=== PATIENT | female | born 1950 | race African-American/Black ===

== ENCOUNTER 2017-02-28 11:07 | Outpatient (CLI) | payer OTHER | END 2017-02-28 13:59 | disposition home or self-care (01) | LOC: BICRAD 11:07 | PROVIDERS: ATTEND Family Medicine | DX: M25.572 Pain in left ankle and joints of left foot (principal); M79.672 Pain in left foot; M79.89 Other specified soft tissue disorders ==

== ENCOUNTER 2017-10-30 10:21 | Outpatient (CLI) | payer MEDICARE, OTHER | END 2017-10-30 10:22 | disposition home or self-care (01) | LOC: BICMAMMO 10:21 | PROVIDERS: ATTEND Family Medicine | DX: Z12.31 Encounter for screening mammogram for malignant neoplasm of breast (principal) | CPT/HCPCS: 77063; 77067 ==

== ENCOUNTER 2020-06-11 16:49 | Observation (INO) | payer MEDICARE, MEDICAID ==
[2020-06-11] MEDS ORDERED: Lorazepam 2 MG/ML VIAL ONE (17:20)
[2020-06-11 18:57] LABS: ALT (SGPT) 34 U/L (8-55); AST (SGOT) 69 U/L (5-34); Albumin 3.9 g/dL (3.4-4.8); Alkaline Phosphatase 86 U/L (40-110); Anion Gap 15 mmol/L (10-20); BUN (Urea Nitrogen) 14 mg/dL (9.8-20.1); Bilirubin, Total 0.3 mg/dL (0.2-1.2); Calc. Creatinine Clearance 0 mL/min (70-130); Calcium 8.5 mg/dL (7.8-10.44); Carbon Dioxide 22 mmol/L (23-31); Chloride 105 mmol/L (98-107); Globulin 4.2 g/dL (2.4-3.5); Glucose 154 mg/dL (83-110); Protein, Total 8.1 g/dL (5.8-8.1); Sodium 138 mmol/L (136-145)
[2020-06-11 20:36] LABS: #Eosinphils 0.1 thou/uL (0.0-0.7); #Lymphocytes 1.8 thou/uL (1.20-3.40); #Monocytes 0.5 thou/uL (0.11-0.59); #Neutrophils 2.8 thou/uL (1.40-6.50); %Basophils 0.4 % (0.0-1.0); %Eosinophils 1.6 % (0.0-10.0); %Lymphocytes 33.6 % (21.0-51.0); %Monocytes 10.1 % (0.0-10.0); %Neutrophils 54.3 % (42.0-75.0); Hemoglobin 12.9 g/dL (12.0-16.0); Mean Corpuscular HGB CONC 32.5 g/dL (32.0-36.0); Mean Corpuscular Hemoglobin 30.1 pg (27.0-31.0); Mean Corpuscular Volume 92.8 fL (78.0-98.0); Mean Platelet Volume 8.6 fL (7.4-10.4); Platelet Count 137 thou/uL (130-400); RBC Distribution Width 12.5 % (11.5-14.5); Red Blood Cell (RBC) Count 4.29 mill/uL (4.20-5.40); White Blood Cell (WBC) Count 5.2 thou/uL (4.8-10.8)
[2020-06-11 21:00] LABS: Troponin I Less than 0.010 ng/mL (< 0.028)
[2020-06-11] MEDS ORDERED: Nitroglycerin 0.4 MG TAB (25 Tab Bottle) SL PRN (21:55)
[2020-06-11] MEDS ORDERED: Calcium Carbonate 500 MG ChewTAB PO PRN (21:55)
[2020-06-11 22:05] VITALS: BMI 35.2
[2020-06-11 22:06] LABS: Hemoglobin A1c 6.6 % (4.0-6.0)
[2020-06-11] MEDS ORDERED: Dextrose 50% Abboject 50 ML SYRINGE SLOW IVP PRN (22:07)
[2020-06-11] MEDS ORDERED: Dextrose 5% in Water 1,000 ML IV PRN (22:07)
[2020-06-11] MEDS: ALPRAZolam 0.5 MG TAB PO PRN (22:42)
[2020-06-11 23:59] LABS: Troponin I 0.013 ng/mL (< 0.028)
[2020-06-12 04:45] LABS: SARS-CoV-2 PCR by NAA Not Detected (NotDetected)
[2020-06-12 05:31] LABS: ALT (SGPT) 30 U/L (8-55); AST (SGOT) 50 U/L (5-34); Albumin 3.7 g/dL (3.4-4.8); Alkaline Phosphatase 63 U/L (40-110); Anion Gap 11 mmol/L (10-20); BUN (Urea Nitrogen) 10 mg/dL (9.8-20.1); Bilirubin, Total 0.5 mg/dL (0.2-1.2); Calc. Creatinine Clearance 110 mL/min (70-130); Carbon Dioxide 29 mmol/L (23-31); Cardiac Risk 2.2 (Less than 4.5); Chloride 105 mmol/L (98-107); Cholesterol 129 mg/dl (< 200 Desired); Globulin 3.4 g/dL (2.4-3.5); Glucose 113 mg/dL (83-110); HDL Cholesterol 58 mg/dL (>60 Neg Risk); LDL Cholesterol, Calculated 61 mg/dL; Potassium 3.9 mmol/L (3.5-5.1); Protein, Total 7.1 g/dL (5.8-8.1); Sodium 141 mmol/L (136-145); Triglycerides 49 mg/dL (Less than 150)
[2020-06-12 05:42] LABS: Free T4 (Free Thyroxine) 1.06 ng/dL (0.70-1.48)
[2020-06-12] MEDS ORDERED: Lisinopril 20 MG TAB PO SCH (09:00)
[2020-06-12] MEDS ORDERED: Enoxaparin Sodium 40 MG/0.4 ML SYRINGE SC SCH (09:00)
[2020-06-12] MEDS ORDERED: Furosemide 40 MG TAB PO SCH (09:00)
[2020-06-12] MEDS: ALPRAZolam 0.5 MG TAB PO PRN (09:34)
[2020-06-12 13:29] VITALS: BP 135/64; TEMP 98.1
[2020-06-12] MEDS ORDERED: FLU VACC QS2020-21(65YR UP)/PF 240 MCG/0.7 ML SYRINGE IM ONE (21:00)
[2020-06-12] MEDS ORDERED: Rosuvastatin 20 MG TAB PO SCH (21:00)
== END 2020-06-12 13:27 | disposition home or self-care (01) ==
LOC: ERS 16:49 → 2NO 20:01
PROVIDERS: ADMIT Student in an Organized Health Care Education/Training Program; ATTEND Student in an Organized Health Care Education/Training Program
DX: F41.9 Anxiety disorder, unspecified (principal); R00.0 Tachycardia, unspecified; I10 Essential (primary) hypertension; E11.9 Type 2 diabetes mellitus without complications; E78.5 Hyperlipidemia, unspecified; Z79.84 Long term (current) use of oral hypoglycemic drugs; Z79.899 Other long term (current) drug therapy; Z88.0 Allergy status to penicillin; Z20.822 Contact with and (suspected) exposure to COVID-19
CPT/HCPCS: 71045; 80053; 80061; 82962 ×2; 83036; 84439; 84481; 84484 ×2; 85379; 93005; 96372; 96374; 99285; G0378 ×3; U0003; U0005; 36415; 36416; 84443; 85025; 87635; J1650; J2060

== ENCOUNTER 2020-11-08 14:16 | Outpatient (CLI) | payer MEDICARE, MEDICAID | END 2020-11-08 14:17 | disposition home or self-care (01) | LOC: BICMAMMO 14:16 | PROVIDERS: ATTEND Family Medicine | DX: Z12.31 Encounter for screening mammogram for malignant neoplasm of breast (principal) | CPT/HCPCS: 77063; 77067 ==

== ENCOUNTER 2022-01-04 13:29 | Outpatient (CLI) | payer MEDICARE, MEDICAID | END 2022-01-04 13:30 | disposition home or self-care (01) | LOC: BICMAMMO 13:29 | PROVIDERS: ATTEND Family Medicine | DX: Z12.31 Encounter for screening mammogram for malignant neoplasm of breast (principal) | CPT/HCPCS: 77063; 77067 ==

== ENCOUNTER 2023-03-12 13:33 | Outpatient (CLI) | payer MEDICARE, MEDICAID | END 2023-03-12 13:34 | disposition home or self-care (01) | LOC: BICMAMMO 13:33 | PROVIDERS: ATTEND Family Medicine | DX: Z12.31 Encounter for screening mammogram for malignant neoplasm of breast (principal) | CPT/HCPCS: 77063; 77067 ==

== ENCOUNTER 2024-03-13 13:22 | Outpatient (CLI) | payer MEDICARE, MEDICAID | END 2024-03-13 13:23 | disposition home or self-care (01) | LOC: BICMAMMO 13:22 | PROVIDERS: ATTEND Family Medicine | DX: Z12.31 Encounter for screening mammogram for malignant neoplasm of breast (principal) | CPT/HCPCS: 77063; 77067 ==